=== PATIENT | male | born 1980 | race Caucasian/White ===

== ENCOUNTER 2025-03-08 01:30 | Inpatient (IN) | payer OTHER ==
[2025-03-08] VITALS (61 sets, daily range): BP systolic 100–204; BP diastolic 43–108; TEMP 99.8–101.2; O2SAT 96–100
[~2025-03-08] VITALS: Ht 172.7 cm; Wt 81.6 kg
[2025-03-08] MEDS: LORAZEPAM 2 MG/1 ML VIAL IV ONE ×3 (01:45→05:40)
[2025-03-08] MEDS: PHENOBARBITAL SODIUM 130 MG/1 ML DISP.SYRIN IV ONE ×2 (01:45→03:04)
[2025-03-08] MEDS: IV NORMAL SALINE 500 ML BAG IV ONE ×2 (01:45→03:48)
[2025-03-08] MEDS: ONDANSETRON 4 MG/2 ML VIAL IV ONE (01:45)
[2025-03-08] MEDS ORDERED: ONDANSETRON 4 MG/2 ML VIAL ONE (01:54)
[2025-03-08] MEDS ORDERED: LORAZEPAM 2 MG/1 ML VIAL ONE ×3 (01:55→05:31)
[2025-03-08] MEDS ORDERED: PHENOBARBITAL SODIUM 130 MG/1 ML DISP.SYRIN ONE ×3 (01:55→05:30)
[2025-03-08 02:00] LABS: BASOPHILS # (AUTO) 0.1 K/UL (0.0-0.2); BASOPHILS % (AUTO) 0.6 % (0.0-2.0); DIFFERENTIAL COMMENT 1; EOSINOPHILS % (AUTO) 0.1 % (0.0-7.0); HEMATOCRIT 50.2 % (36.7-47.1); HEMOGLOBIN 17.4 g/dL (12.5-16.3); LYMPHOCYTES # (AUTO) 1.4 K/uL (0.8-4.8); LYMPHOCYTES % (AUTO) 9.1 % (20.5-51.5); MEAN CORPUSCULAR HEMOGLOBIN 31.2 uug (23.8-33.4); MEAN CORPUSCULAR HGB CONC 35 g/dL (32.5-36.3); MEAN CORPUSCULAR VOLUME 89.6 fL (73.0-96.2); MONOCYTES # (AUTO) 0.5 K/uL (0.1-1.30); MONOCYTES % (AUTO) 3.6 % (0.0-11.0); NEUTROPHILS # (AUTO) 13.1 K/uL (1.8-8.9); NEUTROPHILS % (AUTO) 86.6 % (38.5-71.5); PLATELET COUNT (AUTO) 247 K/uL (152-348); RED CELL DISTRIBUTION WIDTH 13.3 % (12.1-16.2); WHITE BLOOD COUNT (AUTO) 15.1 K/uL (3.6-10.2)
[2025-03-08] MEDS ORDERED: MIDAZOLAM HCL 2 MG/2 ML VIAL ONE (02:05)
[2025-03-08 02:06] LABS: CREATININE 1.1 mg/dL (0.6-1.3); POTASSIUM 4.5 mmol/L (3.5-5.1)
[2025-03-08 02:11] LABS: ETHANOL < 3 MG/DL (0-10)
[2025-03-08 02:12] LABS: ALBUMIN 3.8 g/dL (3.4-5.0); BILIRUBIN,TOTAL 0.2 mg/dL (0.2-1.0); MAGNESIUM 1.4 mg/dL (1.8-2.4); TOTAL PROTEIN, SERUM 7.4 g/dL (6.4-8.2)
[2025-03-08] MEDS: MIDAZOLAM HCL 2 MG/2 ML VIAL IV ONE (02:45)
[2025-03-08] MEDS ORDERED: MAGNESIUM SULFATE/D5W 100 ML ONE ×2 (02:47→03:59)
[2025-03-08] MEDS: MAGNESIUM SULFATE/D5W 100 ML IV SCH ×2 (02:54→09:43)
[2025-03-08] MEDS ORDERED: LABETALOL HCL 100 MG/20 ML VIAL IV ONE (03:15)
[2025-03-08] MEDS ORDERED: HALOPERIDOL LACTATE 5 MG/1 ML VIAL ONE (03:21)
[2025-03-08] MEDS: HALOPERIDOL LACTATE 5 MG/1 ML VIAL IV ONE (03:49)
[2025-03-08] MEDS ORDERED: MIDAZOLAM HCL 2 MG/2 ML VIAL IV STA (03:52)
[2025-03-08] MEDS ORDERED: MIDAZOLAM HCL 5 MG/ML VIAL ONE (03:58)
[2025-03-08] MEDS: MIDAZOLAM HCL 2 MG/2 ML VIAL IV STA ×2 (04:26→04:54)
[2025-03-08] MEDS ORDERED: ETOMIDATE 20 MG/10 ML VIAL ONE (05:30)
[2025-03-08] MEDS ORDERED: ONDANSETRON 4 MG/2 ML VIAL IV PRN (05:30)
[2025-03-08] MEDS ORDERED: MAGNESIUM HYDROXIDE 30 ML LIQUID UDC PO PRN (05:30)
[2025-03-08] MEDS: ROCURONIUM BROMIDE 50 MG/5 ML VIAL IV ONE (05:40)
[2025-03-08] MEDS: ETOMIDATE 20 MG/10 ML VIAL IV ONE (05:40)
[2025-03-08] MEDS ORDERED: PROPOFOL 100 ML ONE ×4 (05:48→22:41)
[2025-03-08] MEDS ORDERED: ALBUTEROL SULFATE 2.5 MG/3 ML NEBU NEB PRN (06:00)
[2025-03-08] MEDS ORDERED: FENTANYL CITRATE 100 MCG/2 ML AMPUL ONE (06:03)
[2025-03-08] MEDS: PROPOFOL 100 ML IV ONE (06:10)
[2025-03-08 06:12] LABS: BASOPHILS # (AUTO) 0.1 K/UL (0.0-0.2); BASOPHILS % (AUTO) 0.6 % (0.0-2.0); HEMOGLOBIN 15.7 g/dL (12.5-16.3); LYMPHOCYTES # (AUTO) 1.3 K/uL (0.8-4.8); LYMPHOCYTES % (AUTO) 9.8 % (20.5-51.5); MEAN CORPUSCULAR HEMOGLOBIN 31.6 uug (23.8-33.4); MEAN CORPUSCULAR HGB CONC 35 g/dL (32.5-36.3); MEAN CORPUSCULAR VOLUME 90.4 fL (73.0-96.2); MONOCYTES # (AUTO) 0.4 K/uL (0.1-1.30); MONOCYTES % (AUTO) 3.4 % (0.0-11.0); NEUTROPHILS # (AUTO) 11.3 K/uL (1.8-8.9); NEUTROPHILS % (AUTO) 86.2 % (38.5-71.5); PLATELET COUNT (AUTO) 220 K/uL (152-348); RED BLOOD CELL COUNT(AUTO) 4.97 MIL/uL (4.06-5.63); RED CELL DISTRIBUTION WIDTH 13.4 % (12.1-16.2); WHITE BLOOD COUNT (AUTO) 13.1 K/uL (3.6-10.2)
[2025-03-08 06:13] LABS: DIFFERENTIAL COMMENT 1
[2025-03-08] MEDS: PHENOBARBITAL SODIUM 130 MG/1 ML DISP.SYRIN IV STA (06:30)
[2025-03-08] MEDS ORDERED: MIDAZOLAM HCL 2 MG/2 ML VIAL IV PRN (06:30)
[2025-03-08 06:32] LABS: THYROID STIMULATING HORMONE 1.516 mIU/mL (0.358-3.740)
[2025-03-08 06:35] LABS: ALBUMIN 3.5 g/dL (3.4-5.0); BILIRUBIN,DIRECT 0.1 mg/dL (0.0-0.2); BILIRUBIN,TOTAL 0.2 mg/dL (0.2-1.0); CALCIUM 7.9 mg/dL (8.5-10.1); CREATININE 1.1 mg/dL (0.6-1.3); MAGNESIUM 1.8 mg/dL (1.8-2.4); PHOSPHOROUS 2.7 mg/dL (2.5-4.9); TOTAL PROTEIN, SERUM 6.6 g/dL (6.4-8.2)
[2025-03-08] MEDS: FENTANYL CITRATE 100 MCG/2 ML AMPUL IV SCH (06:43)
[2025-03-08] MEDS ORDERED: OLANZAPINE 10 MG VIAL IM ONE (06:46)
[2025-03-08] MEDS: OLANZAPINE 10 MG VIAL IM ONE (06:49)
[2025-03-08 07:02] LABS: POTASSIUM 4.3 mmol/L (3.5-5.1)
[2025-03-08 07:13] LABS: ABG PCO2 37.3 mmHg (35.0-48.0); ABG PH 7.427 (7.350-7.450); ABG PO2 174.4 mmHg (83.0-108.0); ABG SITE RIGHT RADIAL; ABG TOTAL HEMOGLOBIN 15.7 G/dL (13.5-17.5); AaDO2 99.2 mmHg; COHb 0.5 % (0.5-1.5); MetHb 0.4 % (0.0-1.5); O2Hb 98.4 % (94.0-98.0); VT, ABG 500 mL
[2025-03-08] MEDS: FENTANYL CITRATE/PF 1,000 MCG in IV NORMAL SALINE 80 ML IV PRN (07:59)
[2025-03-08] MEDS: PROPOFOL 100 ML IV PRN ×2 (08:23→22:47)
[2025-03-08] MEDS ORDERED: PANTOPRAZOLE SODIUM 40 MG TABLET.DR PO ONE (08:41)
[2025-03-08] MEDS ORDERED: ENOXAPARIN SODIUM 40 MG/0.4 ML DISP.SYRIN SQ ONE (08:41)
[2025-03-08] MEDS: ENOXAPARIN SODIUM 40 MG/0.4 ML DISP.SYRIN SQ SCH (08:43)
[2025-03-08] MEDS: PANTOPRAZOLE SODIUM 40 MG TABLET.DR PO SCH (08:44)
[2025-03-08] MEDS: CEFTRIAXONE 1 G in IV DEXTROSE 5% 50 ML IV SCH (08:44)
[2025-03-08] MEDS ORDERED: PANTOPRAZOLE SODIUM 40 MG VIAL ONE (09:28)
[2025-03-08] MEDS: PANTOPRAZOLE SODIUM 40 MG VIAL IV SCH (09:29)
[2025-03-08] MEDS ORDERED: MAGNESIUM SULFATE/D5W 400 ML ONE (09:40)
[2025-03-08] MEDS: PRECEDEX 400 MCG/100 ML BOTTLE 100 ML IV PRN (11:15)
[2025-03-08] MEDS ORDERED: ACETAMINOPHEN 325 MG TABLET ONE (11:28)
[2025-03-08] MEDS: ACETAMINOPHEN 325 MG TABLET PO PRN (11:30)
[2025-03-08] MEDS ORDERED: FUROSEMIDE 20 MG/2 ML VIAL ONE (12:11)
[2025-03-08] MEDS: FUROSEMIDE 20 MG/2 ML VIAL IV ONE (12:12)
[2025-03-08] MEDS: IV NS 1000 ML 1,000 ML IV PRN (12:22)
[2025-03-08 14:29] LABS: *BILIRUBIN,URIN NEGATIVE (NEGATIVE); *BLOOD, URINE NEGATIVE (NEGATIVE); *CLARITY,URINE CLEAR (CLEAR); *COLOR,URINE YELLOW (YELLOW); *KETONES,URINE NEGATIVE (NEGATIVE); *PROTEIN,URINE NEGATIVE (NEGATIVE); *UROBILINOGEN,URINE 0.2 E.U./dl (NORMAL); LEUKOCYTE ESTERASE ,URINE NEGATIVE (NEGATIVE); NITRITE, URINE NEGATIVE (NEGATIVE); UGLUCOSE NEGATIVE (NEGATIVE)
[2025-03-08 14:38] LABS: *AMPHETAMINE, URINE NEGATIVE (NEGATIVE); *BARBITURATE, URINE POSITIVE (NEGATIVE); *BENZODIAZEPINE, URINE POSITIVE (NEGATIVE); *CANNABINOID, URINE NEGATIVE (NEGATIVE); *COCCAINE, URINE NEGATIVE (NEGATIVE); *OPIATE, URINE NEGATIVE (NEGATIVE); *PHENCYCLIDINE SCREEN,URINE NEGATIVE (NEGATIVE); FENTANYL, URINE POSITIVE (NEGATIVE)
[2025-03-08 18:36] LABS: CALCIUM 8.3 mg/dL (8.5-10.1); CREATININE 1.1 mg/dL (0.6-1.3); MAGNESIUM 2.4 mg/dL (1.8-2.4); PHOSPHOROUS 2.5 mg/dL (2.5-4.9); POTASSIUM 3.9 mmol/L (3.5-5.1)
[2025-03-08] MEDS ORDERED: PROPOFOL 100 ML IV PRN (19:40)
[2025-03-08] MEDS ORDERED: ROCURONIUM BROMIDE 50 MG/5 ML VIAL ONE (19:40)
[2025-03-09] VITALS (53 sets, daily range): BP systolic 113–152; BP diastolic 40–76; TEMP 97.4–99.7; O2SAT 97–100
[2025-03-09] MEDS ORDERED: PROPOFOL 100 ML ONE ×2 (04:05→09:23)
[2025-03-09 04:59] LABS: BASOPHILS # (AUTO) 0.1 K/UL (0.0-0.2); BASOPHILS % (AUTO) 0.8 % (0.0-2.0); EOSINOPHILS # (AUTO) 0.1 K/uL (0.0-0.7); EOSINOPHILS % (AUTO) 0.9 % (0.0-7.0); HEMATOCRIT 44.9 % (36.7-47.1); HEMOGLOBIN 15.6 g/dL (12.5-16.3); LYMPHOCYTES # (AUTO) 1.9 K/uL (0.8-4.8); LYMPHOCYTES % (AUTO) 18.2 % (20.5-51.5); MEAN CORPUSCULAR HEMOGLOBIN 31.5 uug (23.8-33.4); MEAN CORPUSCULAR HGB CONC 35 g/dL (32.5-36.3); MEAN CORPUSCULAR VOLUME 90.6 fL (73.0-96.2); MONOCYTES % (AUTO) 9.6 % (0.0-11.0); NEUTROPHILS # (AUTO) 7.4 K/uL (1.8-8.9); NEUTROPHILS % (AUTO) 70.5 % (38.5-71.5); PLATELET COUNT (AUTO) 193 K/uL (152-348); RED BLOOD CELL COUNT(AUTO) 4.95 MIL/uL (4.06-5.63); RED CELL DISTRIBUTION WIDTH 13.7 % (12.1-16.2); WHITE BLOOD COUNT (AUTO) 10.5 K/uL (3.6-10.2)
[2025-03-09 05:02] LABS: DIFFERENTIAL COMMENT 1
[2025-03-09 05:13] LABS: CALCIUM 7.8 mg/dL (8.5-10.1); CREATININE 0.8 mg/dL (0.6-1.3); MAGNESIUM 2.2 mg/dL (1.8-2.4); PHOSPHOROUS 1.9 mg/dL (2.5-4.9)
[2025-03-09 06:15] LABS: ABG BASE EXCESS 1.1 mmol/L (-2.0-3.0); ABG PCO2 37.5 mmHg (35.0-48.0); ABG PH 7.441 (7.350-7.450); ABG PO2 106.6 mmHg (83.0-108.0); ABG SITE RIGHT RADIAL; ABG TOTAL HEMOGLOBIN 15.9 G/dL (13.5-17.5); AaDO2 98.1 mmHg; COHb 0.2 % (0.5-1.5); MetHb 0.4 % (0.0-1.5); O2Hb 97.6 % (94.0-98.0); VT, ABG 500 mL
[2025-03-09] MEDS ORDERED: PANTOPRAZOLE SODIUM 40 MG VIAL ONE (09:00)
[2025-03-09] MEDS ORDERED: ENOXAPARIN SODIUM 40 MG/0.4 ML DISP.SYRIN SQ ONE (09:00)
[2025-03-09] MEDS ORDERED: FUROSEMIDE 20 MG/2 ML VIAL ONE (09:00)
[2025-03-09] MEDS: FUROSEMIDE 20 MG/2 ML VIAL IV ONE (09:08)
[2025-03-09] MEDS: SODIUM PHOSPHATE MM 15 MMOL in IV NORMAL SALINE 250 ML IV ONE (18:56)
[2025-03-10] VITALS (59 sets, daily range): BP systolic 117–176; BP diastolic 58–116; TEMP 98.2–99.8; O2SAT 97–100
[2025-03-10 05:12] LABS: BASOPHILS % (AUTO) 0.6 % (0.0-2.0); EOSINOPHILS % (AUTO) 0.5 % (0.0-7.0); HEMATOCRIT 45.3 % (36.7-47.1); HEMOGLOBIN 15.7 g/dL (12.5-16.3); MEAN CORPUSCULAR HEMOGLOBIN 31.5 uug (23.8-33.4); MEAN CORPUSCULAR HGB CONC 35 g/dL (32.5-36.3); MEAN CORPUSCULAR VOLUME 90.9 fL (73.0-96.2); MONOCYTES # (AUTO) 0.7 K/uL (0.1-1.30); MONOCYTES % (AUTO) 8.1 % (0.0-11.0); NEUTROPHILS # (AUTO) 5.7 K/uL (1.8-8.9); NEUTROPHILS % (AUTO) 66.8 % (38.5-71.5); PLATELET COUNT (AUTO) 211 K/uL (152-348); RED BLOOD CELL COUNT(AUTO) 4.98 MIL/uL (4.06-5.63); RED CELL DISTRIBUTION WIDTH 13.6 % (12.1-16.2); WHITE BLOOD COUNT (AUTO) 8.5 K/uL (3.6-10.2)
[2025-03-10 05:29] LABS: DIFFERENTIAL COMMENT 1
[2025-03-10 05:47] LABS: CALCIUM 7.7 mg/dL (8.5-10.1); CREATININE 0.9 mg/dL (0.6-1.3); PHOSPHOROUS 2.9 mg/dL (2.5-4.9); POTASSIUM 3.6 mmol/L (3.5-5.1)
[2025-03-10 06:09] LABS: ABG HCO3 26.6 mmol/L (21.0-28.0); ABG PCO2 37.6 mmHg (35.0-48.0); ABG PH 7.468 (7.350-7.450); ABG PO2 111.1 mmHg (83.0-108.0); ABG SITE LEFT BRACHIAL; AaDO2 98.3 mmHg; COHb 0.2 % (0.5-1.5); MetHb 0.5 % (0.0-1.5); O2Hb 97.7 % (94.0-98.0)
[2025-03-10] MEDS ORDERED: FLUO20CA36 PO (12:23)
[2025-03-10] MEDS ORDERED: AMLO10TA59 PO (12:23)
[2025-03-10 13:21] LABS: THYROID STIMULATING HORMONE 4.33 mIU/mL (0.358-3.740)
[2025-03-10] MEDS: LORAZEPAM 2 MG/1 ML VIAL IV PRN (17:45)
[2025-03-11] VITALS (17 sets, daily range): BP systolic 123–179; BP diastolic 78–109; TEMP 97.9–98.5; O2SAT 93–100
[2025-03-11 05:02] LABS: BASOPHILS # (AUTO) 0.1 K/UL (0.0-0.2); BASOPHILS % (AUTO) 1.1 % (0.0-2.0); EOSINOPHILS # (AUTO) 0.1 K/uL (0.0-0.7); EOSINOPHILS % (AUTO) 1.3 % (0.0-7.0); HEMATOCRIT 45.2 % (36.7-47.1); HEMOGLOBIN 15.7 g/dL (12.5-16.3); LYMPHOCYTES # (AUTO) 1.8 K/uL (0.8-4.8); LYMPHOCYTES % (AUTO) 29.2 % (20.5-51.5); MEAN CORPUSCULAR HEMOGLOBIN 31.7 uug (23.8-33.4); MEAN CORPUSCULAR HGB CONC 35 g/dL (32.5-36.3); MEAN CORPUSCULAR VOLUME 91.2 fL (73.0-96.2); MONOCYTES # (AUTO) 0.5 K/uL (0.1-1.30); MONOCYTES % (AUTO) 8.6 % (0.0-11.0); NEUTROPHILS # (AUTO) 3.7 K/uL (1.8-8.9); NEUTROPHILS % (AUTO) 59.8 % (38.5-71.5); PLATELET COUNT (AUTO) 220 K/uL (152-348); RED BLOOD CELL COUNT(AUTO) 4.95 MIL/uL (4.06-5.63); RED CELL DISTRIBUTION WIDTH 13.7 % (12.1-16.2); WHITE BLOOD COUNT (AUTO) 6.1 K/uL (3.6-10.2)
[2025-03-11 05:04] LABS: DIFFERENTIAL COMMENT 1
[2025-03-11 05:09] LABS: CALCIUM 8.1 mg/dL (8.5-10.1); CREATININE 0.8 mg/dL (0.6-1.3); MAGNESIUM 1.7 mg/dL (1.8-2.4); POTASSIUM 3.9 mmol/L (3.5-5.1)
[2025-03-11 07:32] LABS: ABG BASE EXCESS 1.9 mmol/L (-2.0-3.0); ABG HCO3 25.3 mmol/L (21.0-28.0); ABG PCO2 36.2 mmHg (35.0-48.0); ABG PH 7.462 (7.350-7.450); ABG PO2 109.3 mmHg (83.0-108.0); ABG SITE RIGHT RADIAL; ABG TOTAL HEMOGLOBIN 16.4 G/dL (13.5-17.5); AaDO2 98.2 mmHg; COHb 0.1 % (0.5-1.5); MetHb 0.4 % (0.0-1.5); O2Hb 97.9 % (94.0-98.0)
[2025-03-11] MEDS ORDERED: DC PROPOFOL ONCE EXTUBATED XX PRN (08:00)
[2025-03-11] MEDS: LOSARTAN POTASSIUM 50 MG TABLET NG SCH (09:32)
[2025-03-11] MEDS ORDERED: BUPR8TAB4 SL (10:10)
[2025-03-11] MEDS ORDERED: CLON0.1T PO (10:11)
[2025-03-11] MEDS ORDERED: GABA300C PO (10:12)
[2025-03-11] MEDS ORDERED: HYDR50CA5 PO (10:14)
[2025-03-11] MEDS ORDERED: METH-807 PO (10:15)
[2025-03-11] MEDS ORDERED: ONDA8TAB13 PO (10:16)
[2025-03-11] MEDS ORDERED: TRAZ-257 PO (10:17)
[2025-03-11] MEDS: MAGNESIUM OXIDE 400 MG TABLET PO ONE (11:54)
[2025-03-11] MEDS: LORAZEPAM 2 MG/1 ML VIAL IV PRN (13:21)
[2025-03-11] MEDS ORDERED: BUPR2TAB3 SL (15:13)
[2025-03-11] MEDS: BUPRENORPHINE HCL 2 MG TAB.SUBL SL SCH (15:37)
[2025-03-12] MEDS: PANTOPRAZOLE SODIUM 40 MG TABLET.DR PO SCH (06:37)
[2025-03-12 06:41] VITALS: BP 157/86; TEMP 98.9; O2SAT 98
[2025-03-12 08:01] VITALS: BP 160/100; TEMP 97.9; O2SAT 100
[2025-03-12] MEDS ORDERED: GABAPENTIN 300 MG CAPSULE PO PRN (08:30)
[2025-03-12] MEDS ORDERED: METHOCARBAMOL 750 MG TABLET PO PRN (08:30)
[2025-03-12] MEDS ORDERED: LORAZEPAM 1 MG TABLET PO PRN (08:30)
[2025-03-12] MEDS ORDERED: TRAZODONE 100 MG TABLET PO PRN (08:30)
[2025-03-12] MEDS: MAGNESIUM OXIDE 400 MG TABLET PO ONE (09:15)
[2025-03-12 10:05] LABS: BASOPHILS % (AUTO) 0.8 % (0.0-2.0); EOSINOPHILS # (AUTO) 0.1 K/uL (0.0-0.7); EOSINOPHILS % (AUTO) 1.1 % (0.0-7.0); HEMATOCRIT 46.4 % (36.7-47.1); HEMOGLOBIN 16.1 g/dL (12.5-16.3); LYMPHOCYTES # (AUTO) 1.5 K/uL (0.8-4.8); LYMPHOCYTES % (AUTO) 27.1 % (20.5-51.5); MEAN CORPUSCULAR HEMOGLOBIN 31.9 uug (23.8-33.4); MEAN CORPUSCULAR HGB CONC 35 g/dL (32.5-36.3); MEAN CORPUSCULAR VOLUME 92.1 fL (73.0-96.2); MONOCYTES # (AUTO) 0.4 K/uL (0.1-1.30); MONOCYTES % (AUTO) 7.7 % (0.0-11.0); NEUTROPHILS # (AUTO) 3.4 K/uL (1.8-8.9); NEUTROPHILS % (AUTO) 63.3 % (38.5-71.5); PLATELET COUNT (AUTO) 213 K/uL (152-348); RED BLOOD CELL COUNT(AUTO) 5.04 MIL/uL (4.06-5.63); RED CELL DISTRIBUTION WIDTH 13.4 % (12.1-16.2); WHITE BLOOD COUNT (AUTO) 5.4 K/uL (3.6-10.2)
[2025-03-12 10:18] LABS: CALCIUM 8.6 mg/dL (8.5-10.1); CREATININE 0.9 mg/dL (0.6-1.3); MAGNESIUM 1.5 mg/dL (1.8-2.4); PHOSPHOROUS 1.9 mg/dL (2.5-4.9)
[2025-03-12 10:30] LABS: DIFFERENTIAL COMMENT 1
[2025-03-12 11:19] VITALS: BP 140/95; TEMP 97.8; O2SAT 99
[2025-03-12 14:03] VITALS: BP 171/133
[2025-03-12] MEDS: CLONIDINE HCL 0.1 MG TABLET PO PRN (14:03)
[2025-03-12] MEDS: HYDROXYZINE PAMOATE 25 MG CAPSULE PO PRN (14:23)
[2025-03-12] MEDS ORDERED: NEUTRA PHOS PACKET PO ONE (17:00)
[2025-03-13] MEDS ORDERED: THIAMINE HCL 100 MG TABLET PO SCH (09:00)
[2025-03-13] MEDS ORDERED: MULTIVITAMINS,THERAPEUTIC TABLET PO SCH (09:00)
== END 2025-03-12 15:50 | disposition other institution (70) | DRG 896 ==
LOC: ER 01:41 → UNDOADMIN 03:48 → TELE3 03:48 → MEDSURG3 04:06 → UNDOADMIN 04:06 → DOU3 04:06 → UNDOADMIN 04:14 → TELE-TD3 04:22 → TELE3 04:30 → ICU IN 05:15 → CCU 03-09 10:30 → MEDSURG3 03-11 16:48
PROVIDERS: ADMIT Nurse Practitioner Family; ATTEND Nurse Practitioner Family
PROC: 0BH17EZ Insertion of Endotracheal Airway into Trachea, Via Natural or Artificial Opening (ICD-10-PCS; principal; 2025-03-08)
PROC: 5A1945Z Respiratory Ventilation, 24-96 Consecutive Hours (ICD-10-PCS; 2025-03-08)
DX: F15.13 Other stimulant abuse with withdrawal (principal); G92.8 Other toxic encephalopathy; I50.31 Acute diastolic (congestive) heart failure; J96.01 Acute respiratory failure with hypoxia; G92.9 Unspecified toxic encephalopathy; M62.82 Rhabdomyolysis; D68.59 Other primary thrombophilia; F11.20 Opioid dependence, uncomplicated; N17.9 Acute kidney failure, unspecified; F19.139 Other psychoactive substance abuse with withdrawal, unspecified; F14.13 Cocaine abuse, unspecified with withdrawal; F13.139 Sedative, hypnotic or anxiolytic abuse with withdrawal, unspecified; F10.139 Alcohol abuse with withdrawal, unspecified; I16.0 Hypertensive urgency; E83.42 Hypomagnesemia; Y92.89 Other specified places as the place of occurrence of the external cause; Y90.0 Blood alcohol level of less than 20 mg/100 ml; F12.13 Cannabis abuse with withdrawal; I11.0 Hypertensive heart disease with heart failure; F41.9 Anxiety disorder, unspecified; D72.829 Elevated white blood cell count, unspecified
CPT/HCPCS: 36415; 36600; 70450; 71045; 82803; 83605; 83735; 83921; 84100; 84443; 84478; 84484; 85025; 87040; 87070; 87077; 87086; 93307; 94002; 94003; 94760; 99082-TC; A4606; A4663; G0378; G0480; J0696; J1630; J1650; J1938; J2060; J2250; J2358; J2405; J2470; J2560; J3010; J3475; J3490; J7040